=== PATIENT | male | born 1970 | race Caucasian/White ===

== ENCOUNTER 2018-01-24 10:50 | Day surgery (SDC) | payer OTHER ==
[~2018-01-24] VITALS: Ht 172.7 cm; Wt 89.8 kg
[~2018-01-24 10:50] MED LIST: ULTRAM50 MG PO
[2018-01-24 11:32] VITALS: BP 127/85
[2018-01-24 14:30] VITALS: BP 131/80
[2018-01-24 15:12] VITALS: BP 131/87
== END 2018-01-24 15:24 | disposition home or self-care (01) ==
LOC: SDC 10:50
PROC: 01N50ZZ Release Median Nerve, Open Approach (ICD-10-PCS; principal; 2018-01-24)
DX: G56.01 Carpal tunnel syndrome, right upper limb (principal); M10.9 Gout, unspecified
CPT/HCPCS: J2250; J2405; S0020

== ENCOUNTER 2018-03-07 11:02 | Day surgery (SDC) | payer OTHER ==
[~2018-03-07] VITALS: Ht 172.7 cm; Wt 90.7 kg
[2018-03-07 11:30] VITALS: BP 115/66
[2018-03-07 11:44] VITALS: BP 115/66
[2018-03-07 16:20] VITALS: BP 112/76
[2018-03-07 17:01] VITALS: BP 124/76
== END 2018-03-07 17:00 | disposition home or self-care (01) ==
LOC: SDC 11:02
DX: G56.02 Carpal tunnel syndrome, left upper limb (principal); G56.22 Lesion of ulnar nerve, left upper limb
CPT/HCPCS: J0131; J0690; J1170; J2250; J3010; S0020